=== PATIENT | male | born 1970 | race Caucasian/White ===

== ENCOUNTER → 2022-08-02 | Outpatient (CLI) | payer OTHER ==
--- NOTE | 2022-08-02 21:00 | CT ---
EXAMINATION TYPE: CT chest w con CT DLP: 253.8 mGycm, Automated exposure control for dose reduction was used. DATE OF EXAM: 08/02/2022 6:56 PM COMPARISON: Chest radiograph 12/07/2013. CLINICAL INDICATION:Male, 51 years old with history of R91.1 SOLITARY PULMONARY NODULE; TECHNIQUE: Multiple axial images were obtained through the chest. Sagittal and coronal reformats were created for review. Contrast used:100ML mL of Isovue 300 with IV Contrast Oral contrast used: none. FINDINGS: LUNGS/ PLEURA: The lung parenchyma appears unremarkable. No evidence of focal consolidation, pneumot horax or pleural effusion. No clinically significant pulmonary nodules identified. AIRWAY: Patent and unremarkable. HEART: Size within normal limits. MEDIASTINUM: No gross evidence of adenopathy. VASCULATURE: No aortic aneurysm. MUSCULOSKELETAL: No acute osseous abnormalities, mild multilevel disc degeneration changes. SOFT TISSUES/LYMPH NODES: Unremarkable. LOWER NECK: No significant findings. UPPER ABDOMEN: Diffuse low-attenuation to the liver parenchyma. IMPRESSION: 1. No evidence of pulmonary nodule, no priors with pulmonary nodule in the impression. Correlation c an be made if prior is made available. 2. Hepatic steatosis.
== END | disposition home or self-care (01) ==
LOC: RADCTMAIN 18:21
PROVIDERS: ATTEND Family Medicine
DX: K76.0 Fatty (change of) liver, not elsewhere classified (principal); R91.1 Solitary pulmonary nodule
CPT/HCPCS: 71260; Q9967